=== PATIENT | female | born 1990 | race Asian ===

== ENCOUNTER 2016-08-24 03:05 | Emergency (ER) | payer SELFPAY ==
[~2016-08-24] VITALS: Ht 167.6 cm; Wt 52.2 kg
[2016-08-24 03:30] VITALS: BP 107/64
--- NOTE | 2016-08-24 04:44 | Emergency Room Report ---
History of Present Illness General Chief Complaint: Alcohol Intoxication Source: EMS Present Illness HPI Is a 26 year-old [place] female. She was brought in for alcohol intoxication. She was partying in [place]. She took an Uber home. According to EMS, the trencher driver dropped her off in a house that the patient stated was a drop of point. No one was answering. Patient was staggering and vomiting. He called 911. Unable to get history from the patient. She is too intoxicated. No trauma. Allergies: Coded Allergies: UNABLE TO ASSESS (Unverified , 08/24/16) Patient History Past Medical History: none, see triage record, old chart reviewed Past Surgical History: none Pertinent Family History: none Social History: Reports: alcohol use, Denies: smoking Now: No Immunizations: other Reviewed Nursing Documentation: PMH: Agreed, PSxH: Agreed Nursing Documentation-PMH Past Medical History Deferred: Pt Cognitively Impaired Review of Systems Gastrointestinal: Reports: nausea, vomiting All Other Systems: limited - Secondary to intoxication Physical Exam Vital Signs Date Time Temp Pulse Resp B/P Pulse Ox O2 Delivery O2 Flow Rate FiO2 08/24/16 03:24 78 14 107/64 99 vitals unremarkable Sp02 EP Interpretation: reviewed, normal General Appearance: well appearing, no apparent distress, other - Strong smell of alcoholic beverage on breath. Very intoxicated Head: normocephalic, atraumatic Eyes: bilateral eye EOMI, bilateral eye PERRL ENT: normal pharynx Neck: full range of motion, supple, no meningismus Respiratory: chest non-tender, lungs clear, normal breath sounds Cardiovascular #1: regular rate, rhythm, no murmur Gastrointestinal: normal bowel sounds, non tender, no mass, no organomegaly, no bruit, non-distended Musculoskeletal: back normal, normal range of motion Neurologic: grossly normal Skin: warm/dry Medical Decision Making Diagnostic Impression: Primary Impression: Acute alcoholic intoxication Qualified Codes: F10.120 - Alcohol abuse with intoxication, uncomplicated ER Course Patient with alcohol intoxication. No evidence of trauma to warrant CT scan. We'll watch her until clinical sobriety. She has her phone and purse with her. Will call family or friend in the morning. Last Vital Signs Date Time Temp Pulse Resp B/P Pulse Ox O2 Delivery O2 Flow Rate FiO2 08/24/16 03:30 78 14 107/64 99 Status: improved Disposition: HOME, SELF-CARE Condition: Stable Referrals: NOT CHOSEN IPA/MD,REFERRING (PCP) Patient Instructions: Alcohol Intoxication, [id number] Additional Instructions: Abstain from drinking to excess. Followup with your Dr. in 7 days as needed. Return if worse. ENRIQUE RUTH M.D. Aug 24, 2016 04:44
[2016-08-24 05:29] VITALS: BP 99/47
[2016-08-24 08:37] VITALS: BP 95/42
[2016-08-24 08:38] VITALS: BP 95/42
== END 2016-08-24 08:39 | disposition home or self-care (01) ==
LOC: EDBD 03:05 → EMR 03:36
DX: F10.129 Alcohol abuse with intoxication, unspecified (principal); R11.2 Nausea with vomiting, unspecified
CPT/HCPCS: 96374; 99284; J2405